=== PATIENT | male | born 1945 | race Caucasian/White ===

== ENCOUNTER → 2022-06-20 14:00 | Outpatient (BNVA) | payer MEDICARE, OTHER, SELFPAY | PROVIDERS: PCP Internal Medicine; Visit Provider Psychiatry & Neurology Psychiatry | DX: F34.1 Dysthymic disorder (principal); F98.8 Other specified behavioral and emotional disorders with onset usually occurring in childhood and adolescence; I10 Essential (primary) hypertension; I25.10 Atherosclerotic heart disease of native coronary artery without angina pectoris | CPT/HCPCS: 90833; 99212 ==

== ENCOUNTER 2023-06-06 11:59 | Outpatient (AMB) | payer MEDICARE, OTHER, SELFPAY ==
--- NOTE | 2023-06-06 12:52 | A.OFFPSYCH_ITS ---
Intake Intake Visit Reasons: depression Allergies No Known Allergies [No Known Allergies*] Allergy (Unverified 11/11/19 16:25) HPI- Psychiatric Chief Complaint: depression HPI Narrative: Pt seen in f/u mood has been blue at times feels like he does cycle down for periods of time and become amotivational at times lack of interest in things lack of shilpa periods of significant anxiety not wanting to do the things that he normally does Past Psychiatric History: History of ADD Chronic history of anxiety and dysthymia Mental Status Exam Mental Status Exam Patient Appearance: Well Grooomed Patient Orientation: Person, Place, Time and Situation Level of Consciousness: Awake and Appropriate Patient Behavior: Appropriate Mood Description: Depressed, Blunted and Apprehensive Affect Description: Appropriate and Constricted Patient Cognition Impaired: No Ability to Follow Directions: Good Speech Pattern: Clear Memory Description: Intact Hallucinations: None Delusions: Not Present Thought Process: Intact and Goal Oriented Thought Content: positive for Goal Oriented, positive for Preoccupation, negative for Suicidal Ideation or negative for Homicidal Ideation Depressive Symptoms: Increased Anxiety, Increased Irritability, Hopelessness, Increased Fatigue, Loss of Energy and Difficulty Concentrating Judgement: Good Assessment and Plan Assessment & Plan (1) Dysthymia: Status: Acute Code(s): F34.1 - Dysthymic disorder (2) ADD (attention deficit disorder) without hyperactivity: Status: Acute Code(s): F98.8 - Other specified behavioral and emotional disorders with onset usually occurring in childhood and adolescence Plan Discussed issues related to depression motivation energy encourage regular exercise social activity exposure to light restart sertraline combined with Wellbutrin may better help anxiety and depressive symptoms risks benefits alternatives reviewed occasional use of lorazepam patient has been sober for many years does not seem to be a trigger Medications: New sertraline start 1/2 tab 2 weeks if no better inc 1 tab daily 50 mg PO DAILY 30 tabs 0RF 30 days Refilled lorazepam 0.5 mg PO DAILY PRN 20 tabs 1RF anxiety bupropion HCl XL (Wellbutrin XL) 150 mg PO QAM 90 tabs 0RF 3 months Counseling and coordination of Care Details-Self Mgmt counseling: Issues related to management depressive symptoms Medication management counseling: Effectiveness, Side effects and Dosing range Diagnosis and Prognosis Counseling: Adequacy of current interventions Details: I spent [38] minutes reviewing the record, seeing the patient and documenting in the medical record. Counseling provided to the patient/caregiver as outlined below. Addressed patient/caregiver concerns regarding current medication regime including effective adherence. Addressed patient/caregiver concerns regarding diagnosis and prognosis including accuracy of diagnosis, prognosis over time, impact of diagnosis. Addressed patient/caregiver concerns regarding impact of recent stressors. 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
== END 2023-06-06 12:30 ==
LOC: HO.HOP 11:59
PROVIDERS: PCP Internal Medicine; Visit Provider Psychiatry & Neurology Psychiatry
DX: F34.1 Dysthymic disorder (principal); F98.8 Other specified behavioral and emotional disorders with onset usually occurring in childhood and adolescence
CPT/HCPCS: 90833; 99213

== ENCOUNTER → 2023-06-06 11:59 | Outpatient (BNVA) | payer MEDICARE, OTHER, SELFPAY | PROVIDERS: PCP Internal Medicine; Visit Provider Psychiatry & Neurology Psychiatry | DX: F34.1 Dysthymic disorder (principal); F98.8 Other specified behavioral and emotional disorders with onset usually occurring in childhood and adolescence | CPT/HCPCS: 99212 ==

== ENCOUNTER 2023-10-24 11:18 | Outpatient (AMB) | payer MEDICARE, OTHER, SELFPAY ==
--- NOTE | 2023-10-24 11:44 | A.OFFPSYCH_ITS ---
Intake Intake Visit Reasons: depression Allergies No Known Allergies [No Known Allergies*] Allergy (Unverified 11/11/19 16:25) HPI- Psychiatric Chief Complaint: depression HPI Narrative: Pt seen in f/u mood good daughter recently got daughter sober x yrs has intermittantly had a difficult time fighting the blues much less on sertraline has dec sexual fx rare limited sx panic attack does fight the blues intermittently difficulty at times with motivation ability to enjoy things Past Psychiatric History: History of ADD Chronic history of anxiety and dysthymia Mental Status Exam Mental Status Exam Patient Appearance: Well Grooomed Patient Orientation: Person, Place, Time and Situation Level of Consciousness: Awake and Appropriate Patient Behavior: Appropriate Mood Description: Depressed, Blunted and Apprehensive Affect Description: Appropriate and Constricted Patient Cognition Impaired: No Ability to Follow Directions: Good Speech Pattern: Clear Memory Description: Intact Hallucinations: None Delusions: Not Present Thought Process: Intact and Goal Oriented Thought Content: positive for Goal Oriented, positive for Preoccupation, negati ve for Suicidal Ideation or negative for Homicidal Ideation Depressive Symptoms: Increased Anxiety, Increased Irritability, Hopelessness, Increased Fatigue, Loss of Energy and Difficulty Concentrating Judgement: Good Assessment and Plan Assessment & Plan (1) Dysthymia: Status: Acute Code(s): F34.1 - Dysthymic disorder (2) ADD (attention deficit disorder) without hyperactivity: Status: Acute Code(s): F98.8 - Other specified behavioral and emotional disorders with onset usually occurring in childhood and adolescence Plan pt doing better with sertraline wellbutrin some sexual side effects some ongoing difficulty with melancholy L methyl folate for augmentation at full dose of 15 mg would make sense consider change from sertraline secondary to sexual side effects could increase Wellbutrin with monitoring blood pressure Counseling and coordination of Care Pt. 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 Counseling provided to the patient/caregiver as outlined below. Addressed patient/caregiver concerns regarding current medication regime including effective adherence. Addressed patient/caregiver concerns regarding diagnosis and prognosis including accuracy of diagnosis, prognosis over time, impact of diagnosis. Addressed patient/caregiver concerns regarding impact of recent stressors. 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
== END 2023-10-24 12:11 | disposition home or self-care (01) ==
LOC: HO.HOP 11:18
PROVIDERS: PCP Internal Medicine; Visit Provider Psychiatry & Neurology Psychiatry
DX: F34.1 Dysthymic disorder (principal); F98.8 Other specified behavioral and emotional disorders with onset usually occurring in childhood and adolescence
CPT/HCPCS: 90833; 99213

== ENCOUNTER → 2023-10-24 11:18 | Outpatient (BNVA) | payer MEDICARE, OTHER, SELFPAY | PROVIDERS: PCP Internal Medicine; Visit Provider Psychiatry & Neurology Psychiatry | DX: F34.1 Dysthymic disorder (principal); F98.8 Other specified behavioral and emotional disorders with onset usually occurring in childhood and adolescence | CPT/HCPCS: 99212 ==

== ENCOUNTER 2024-02-12 10:54 | Outpatient (AMB) | payer MEDICARE, OTHER, SELFPAY ==
--- NOTE | 2024-02-12 11:24 | MHC.OFFVISPS ---
Intake Intake Visit Reasons: depression Allergies No Known Allergies [No Known Allergies*] Allergy (Unverified 11/11/19 16:25) HPI- Psychiatric Chief Complaint: depression HPI Narrative: Pt seen in f/u mood improved does exercise daily does get intermittently discouraged at times. Sometimes melancholic but generally feeling okay. No new medical problems. 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 Gets along well with his has daughter's doing quite well and has been . Patient generally thinks he feels better on the combination of Wellbutrin and relatively low-dose sertraline no complaints of side effects less prone to periods of melancholy. PHQ-9 and jorge 7 not elevated Past Psychiatric History: History of ADD Chronic history of anxiety and dysthymia Mental Status Exam Mental Status Exam Patient Appearance: Well Grooomed Patient Orientation: Person, Place, Time and Situation Level of Consciousness: Awake and Appropriate Patient Behavior: Appropriate Mood Description: Appropriate Affect Description: Flat Patient Cognition Impaired: No Ability to Follow Directions: Good Speech Pattern: Clear Memory Description: Intact Hallucinations: None Delusions: Not Present Thought Process: Intact and Goal Oriented Thought Content: positive for Goal Oriented, positive for Preoccupation, negative for Suicidal Ideation or negative for Homicidal Ideation Depressive Symptoms: Increased Anxiety and Loss of Int. in Activity Judgement: Good Judgement and Insight: Generally good insight some tendency toward melancholy tries to change the channel Assessment and Plan Assessment & Plan (1) Dysthymia: Status: Acute Code(s): F34.1 - Dysthymic disorder (2) ADD (attention deficit disorder) without hyperactivity: Status: Acute Code(s): F98.8 - Other specified behavioral and emotional disorders with onset usually occurring in childhood and adolescence (3) Hypertension: Status: Acute Code(s): I10 - Essential (primary) hypertension Plan Occasional use of lorazepam p.r.n. patient has been sober 25+ years continue low-dose sertraline which appears to be quite helpful for helping with mixed anxiety and depressive symptoms continue Wellbutrin 150 mg. No new medical concerns follow-up 4 months Medications: Refilled lorazepam 0.5 mg PO DAILY PRN 20 tabs 1RF anxiety sertraline 50 mg PO DAILY 90 tabs 1RF 90 days bupropion HCl XL (Wellbutrin XL) 150 mg PO QAM 90 tabs 0RF 3 months Counseling and coordination of Care Pt. Self Management counseling: Breathing, Behavior activation and Cognitive restructuring Details-Self Mgmt counseling: Try and be aware of negative cognitions and distortions Diagnosis and Prognosis Counseling: Adequacy of current interventions Details: I spent [37] minutes reviewing the record, seeing the patient and documenting in the medical record. Counseling provided to the patient/caregiver as outlined below. Addressed patient/caregiver concerns regarding current medication regime including effective adherence. Addressed patient/caregiver concerns regarding diagnosis and prognosis including accuracy of diagnosis, prognosis over time, impact of diagnosis. Addressed patient/caregiver concerns regarding impact of recent stressors. 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
== END 2024-02-12 11:36 | disposition home or self-care (01) ==
LOC: HO.HOP 10:54
PROVIDERS: PCP Internal Medicine; Visit Provider Psychiatry & Neurology Psychiatry
DX: F34.1 Dysthymic disorder (principal); F98.8 Other specified behavioral and emotional disorders with onset usually occurring in childhood and adolescence; I10 Essential (primary) hypertension
CPT/HCPCS: 99214

== ENCOUNTER → 2024-02-12 10:54 | Outpatient (BNVA) | payer MEDICARE, OTHER, SELFPAY | PROVIDERS: PCP Internal Medicine; Visit Provider Psychiatry & Neurology Psychiatry | DX: F34.1 Dysthymic disorder (principal); F98.8 Other specified behavioral and emotional disorders with onset usually occurring in childhood and adolescence; I10 Essential (primary) hypertension | CPT/HCPCS: 99212 ==

== ENCOUNTER 2024-07-15 11:17 | Outpatient (AMB) | payer MEDICARE, OTHER, SELFPAY ==
--- NOTE | 2024-07-15 12:53 | MHC.OFFVISPS ---
Intake Intake Visit Reasons: depression Allergies No Known Allergies [No Known Allergies*] Allergy (Unverified 11/11/19 16:25) Medication List - Last Reconciled 07/15/24 by Valentín Eastman MD aspirin (Adult Aspirin Regimen) 81 mg PO DAILY atorvastatin 80 mg PO BEDTIME bupropion HCl XL (Wellbutrin XL) 150 mg PO QAM 3 months carvedilol 25 mg PO BID doxepin 3 mg PO BEDTIME PRN lorazepam 0.5 mg PO DAILY PRN sertraline 75 mg (1.5 x 50 mg) PO DAILY 90 days HPI- Psychiatric Chief Complaint: depression HPI Narrative: Patient seen psychiatric follow-up patient has generally been doing okay but has some aspects of mild chronic dysthymia has had difficulty with senior care at times. 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 No new medical concerns Past Psychiatric History: History of ADD Chronic history of anxiety and dysthymia Mental Status Exam Mental Status Exam Patient Appearance: Well Grooomed Patient Orientation: Person, Place, Time and Situation Level of Consciousness: Awake and Appropriate Patient Behavior: Appropriate Mood Description: Depressed and Blunted Affect Description: Flat Patient Cognition Impaired: No Ability to Follow Directions: Good Speech Pattern: Clear Memory Description: Intact Hallucinations: None Delusions: Not Present Thought Process: Intact and Goal Oriented Thought Content: positive for Goal Oriented, positive for Preoccupation, negative for Suicidal Ideation or negative for Homicidal Ideation Depressive Symptoms: Increased Anxiety and Loss of Int. in Activity Judgement: Good Judgement and Insight: Generally good insight some tendency toward melancholy tries to change the channel Assessment and Plan Assessment & Plan (1) Dysthymia: Status: Acute Code(s): F34.1 - Dysthymic disorder (2) ADD (attention deficit disorder) without hyperactivity: Status: Acute Code(s): F98.8 - Other specified behavioral and emotional disorders with onset usually occurring in childhood and adolescence Plan We discussed different strategies to manage chronic dysphoria this is fair familiar to the patient over time. We have discussed exercise L methyl folate increasing sertraline to 75 mg discussed possibility of increased sexual side effects Medications: Changed From sertraline 50 mg PO DAILY 90 days 90 tabs 1RF To sertraline 75 mg (1.5 x 50 mg) PO DAILY 135 tabs 1RF 90 days Refilled lorazepam 0.5 mg PO DAILY PRN 20 tabs 1RF anxiety Counseling and coordination of Care Details-Self Mgmt counseling: Issues related to chronic depression senior care ways to maintain functioning and mood Diagnosis and Prognosis Counseling: Impact of diagnosis on life functions and Adequacy of current interventions Details: I spent [40] minutes reviewing the record, seeing the patient and documenting in the medical record. Counseling provided to the patient/caregiver as outlined below. Addressed patient/caregiver concerns regarding current medication regime including effective adherence. Addressed patient/caregiver concerns regarding diagnosis and prognosis including accuracy of diagnosis, prognosis over time, impact of diagnosis. Addressed patient/caregiver concerns regarding impact of recent stressors. 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
== END 2024-07-15 13:46 | disposition home or self-care (01) ==
LOC: HO.HOP 11:17
PROVIDERS: PCP Internal Medicine; Visit Provider Psychiatry & Neurology Psychiatry
DX: F34.1 Dysthymic disorder (principal); F98.8 Other specified behavioral and emotional disorders with onset usually occurring in childhood and adolescence
CPT/HCPCS: 90833; 99213

== ENCOUNTER → 2024-07-15 11:17 | Outpatient (BNVA) | payer MEDICARE, OTHER, SELFPAY | PROVIDERS: PCP Internal Medicine; Visit Provider Psychiatry & Neurology Psychiatry | DX: F34.1 Dysthymic disorder (principal); F98.8 Other specified behavioral and emotional disorders with onset usually occurring in childhood and adolescence; Z71.89 Other specified counseling | CPT/HCPCS: 99212 ==

== ENCOUNTER 2024-10-11 10:53 | Outpatient (REF) | payer MEDICARE, OTHER, SELFPAY ==
[2024-10-11 13:08] LABS: Alanine Aminotransferase 58 U/L (0-40); Albumin Level 4.7 g/dL (3.5-5.0); Alkaline Phosphatase 97 U/L (39-117); Anion Gap 11 (12-20); Aspartate Amino Transferase 35 U/L (5-37); Blood Urea Nitrogen 19 mg/dL (9-16); Calcium 9.2 mg/dL (8.4-10.2); Carbon Dioxide 25 mmol/L (22-29); Chloride 109 mmol/L (96-108); Estimated Glomerular Filt Rate > 60; Potassium 4.2 mmol/L (3.3-5.1); Sodium 141 mmol/L (135-145); Total Protein 7.2 g/dL (6.5-8.0)
[2024-10-11 13:30] LABS: Folate 13.8 ng/mL (> or = 4.0); Vitamin B12 517 pg/mL (200-900)
== END 2024-10-11 10:54 | disposition home or self-care (01) ==
LOC: HO.LAB 10:53
PROVIDERS: PCP Internal Medicine; Visit Provider Psychiatry & Neurology Psychiatry
DX: F34.1 Dysthymic disorder (principal); F98.8 Other specified behavioral and emotional disorders with onset usually occurring in childhood and adolescence; I10 Essential (primary) hypertension
CPT/HCPCS: 36415; 80053; 82607; 82746; 84443; 99212

== ENCOUNTER 2024-10-11 10:53 | Outpatient (AMB) | payer MEDICARE, OTHER, SELFPAY ==
--- NOTE | 2024-10-11 11:44 | MHC.OFFVISPS ---
Intake Intake Visit Reasons: depression Allergies No Known Allergies (No Known Allergies*) Allergy (Unverified 11/11/19 16:25) HPI- Psychiatric Chief Complaint: depression HPI Narrative: Patient describes certain sense of chronic low-level dysphoria lack of interest in things that he normally used to do. 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 No new medical concerns. Patient does walk regularly. Past Psychiatric History: History of ADD Chronic history of anxiety and dysthymia Mental Status Exam Mental Status Exam Patient Appearance: Well Grooomed Patient Orientation: Person, Place, Time and Situation Level of Consciousness: Awake and Appropriate Patient Behavior: Appropriate Mood Description: Depressed and Blunted Affect Description: Flat Patient Cognition Impaired: No Ability to Follow Directions: Good Speech Pattern: Clear Memory Description: Intact Hallucinations: None Delusions: Not Present Thought Process: Intact and Goal Oriented Thought Content: positive for Goal Oriented, positive for Preoccupation, negative for Suicidal Ideation or negative for Homicidal Ideation Depressive Symptoms: Increased Anxiety and Loss of Int. in Activity Judgement: Good Judgement and Insight: Generally good insight some tendency toward melancholy tries to change the channel Assessment and Plan Assessment & Plan (1) Dysthymia: Status: Acute Code(s): F34.1 - Dysthymic disorder (2) ADD (attention deficit disorder) without hyperactivity: Status: Acute Code(s): F98.8 - Other specified behavioral and emotional disorders with onset usually occurring in childhood and adolescence Plan Check labs with chronic dysphoria have strongly urged patient to consider TMS which was helpful in the past would not have the medication side effects he is concerned about CONTINUE WELLBUTRIN SERTRALINE TSH B12 FOLATE ARE WITHIN NORMAL LIMITS Orders: Orders TSH reflex Free T4 10/11/24 F34.1 - Dysthymic disorder, F98.8 - Other specified behavioral and emotional disorders with onset usually occurring in childhood and adolescence, I10 - Essential (primary) hypertension Comprehensive Met. Panel 10/11/24 F34.1 - Dysthymic disorder, F98.8 - Other specified behavioral and emotional disorders with onset usually occurring in childhood and adolescence, I10 - Essential (primary) hypertension Vitamin B12 and Folate 10/11/24 F34.1 - Dysthymic disorder, F98.8 - Other specified behavioral and emotional disorders with onset usually occurring in childhood and adolescence, I10 - Essential (primary) hypertension Counseling and coordination of Care Details: I spent [] minutes reviewing the record, seeing the patient and documenting in the medical record. Counseling provided to the patient/caregiver as outlined below. Addressed patient/caregiver concerns regarding current medication regime including effective adherence. Addressed patient/caregiver concerns regarding diagnosis and prognosis including accuracy of diagnosis, prognosis over time, impact of diagnosis. Addressed patient/caregiver concerns regarding impact of recent stressors. 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
== END 2024-10-11 11:53 | disposition home or self-care (01) ==
LOC: HO.HOP 10:53
PROVIDERS: PCP Internal Medicine; Visit Provider Psychiatry & Neurology Psychiatry
DX: F34.1 Dysthymic disorder (principal); F98.8 Other specified behavioral and emotional disorders with onset usually occurring in childhood and adolescence
CPT/HCPCS: 90833; 99213

== ENCOUNTER 2024-12-02 10:10 | Outpatient (AMB) | payer MEDICARE, OTHER, SELFPAY ==
--- NOTE | 2024-12-02 11:13 | MHC.OFFVISPS ---
Intake Intake Visit Reasons: depression Allergies No Known Allergies (No Known Allergies*) Allergy (Unverified 11/11/19 16:25) HPI- Psychiatric Chief Complaint: depression HPI Narrative: Patient continues to feel somewhat out of sorts. Concerned about his lack of shilpa and the changes in his life. 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 He does have intermittent anxiety/panic and occasionally uses lorazepam does this occasionally remains sober. Tends to have anxiety in the morning, combination of physical and mental anxiety. Difficulty functioning and getting started. Feels overwhelmed at times with basic tasks. Did not tolerate L methyl folate had increased anxiety on sertraline 50 mg Wellbutrin 150 mg. [place]vett perhaps more no sexual feeling on sertraline at higher doses. Has also attend to gain weight on sertraline Past Psychiatric History: History of ADD Chronic history of anxiety and dysthymia Mental Status Exam Mental Status Exam Patient Appearance: Well Grooomed Patient Orientation: Person, Place, Time and Situation Level of Consciousness: Awake and Appropriate Patient Behavior: Appropriate Mood Description: Depressed and Blunted Affect Description: Flat and Apprehensive Patient Cognition Impaired: No Ability to Follow Directions: Good Speech Pattern: Clear Memory Description: Intact Hallucinations: None Delusions: Not Present Thought Process: Intact and Goal Oriented Thought Content: positive for Goal Oriented, positive for Preoccupation, negative for Suicidal Ideation or negative for Homicidal Ideation Depressive Symptoms: Increased Anxiety, Diff. Making Decisions, Increased Irritability, Loss of Int. in Activity, Feelings of Worthlessness and Increased Fatigue Judgement: Good Judgement and Insight: Generally good insight some tendency toward melancholy tries to change the channel Assessment and Plan Assessment & Plan (1) Dysthymia: Status: Acute Code(s): F34.1 - Dysthymic disorder (2) ADD (attention deficit disorder) without hyperactivity: Status: Acute Code(s): F98.8 - Other specified behavioral and emotional disorders with onset usually occurring in childhood and adolescence Plan Patient will try and taper off of sertraline and then start vilazodone. Continue Wellbutrin. May help with anxiety and depressive symptoms. Patient has some difficulty with motivation attention energy feeling empty at times difficulty finding shilpa in energy. 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 Medications: New vilazodone must administer with a meal/food 10 mg PO DAILY 30 tabs 2RF 30 days Discontinued sertraline Discontinued Reason: Patient Completed Course 75 mg (1.5 x 50 mg) PO DAILY 90 days 135 tabs 1RF Counseling and coordination of Care Details-Self Mgmt counseling: Issues related to managing motivation energy finding shilpa managing depressive symptoms and thought Medication management counseling: Effectiveness, Side effects and Dosing range Diagnosis and Prognosis Counseling: Impact of diagnosis on life functions and Adequacy of current interventions Details: I spent [38] minutes reviewing the record, seeing the patient and documenting in the medical record. Counseling provided to the patient/caregiver as outlined below. Addressed patient/caregiver concerns regarding current medication regime including effective adherence. Addressed patient/caregiver concerns regarding diagnosis and prognosis including accuracy of diagnosis, prognosis over time, impact of diagnosis. Addressed patient/caregiver concerns regarding impact of recent stressors. 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
== END 2024-12-02 11:02 | disposition home or self-care (01) ==
LOC: HO.HOP 10:10
PROVIDERS: PCP Internal Medicine; Visit Provider Psychiatry & Neurology Psychiatry
DX: F34.1 Dysthymic disorder (principal); F98.8 Other specified behavioral and emotional disorders with onset usually occurring in childhood and adolescence
CPT/HCPCS: 90833; 99213

== ENCOUNTER → 2024-12-02 10:10 | Outpatient (BNVA) | payer MEDICARE, OTHER, SELFPAY | PROVIDERS: PCP Internal Medicine; Visit Provider Psychiatry & Neurology Psychiatry | DX: F34.1 Dysthymic disorder (principal); F98.8 Other specified behavioral and emotional disorders with onset usually occurring in childhood and adolescence | CPT/HCPCS: 99212 ==

== ENCOUNTER 2025-02-10 10:18 | Outpatient (AMB) | payer MEDICARE, OTHER, SELFPAY ==
--- NOTE | 2025-02-10 11:00 | MHC.OFFVISPS ---
Intake Intake Visit Reasons: Depression Allergies No Known Allergies (No Known Allergies*) Allergy (Unverified 11/11/19 16:25) HPI- Psychiatric Chief Complaint: Depression Intake Note: Patient agrees to use of scribe HPI Narrative: PATIENT SUMMARY The patient presented for follow-up regarding medication management and to address ongoing symptoms of anxiety and depression. HPI The patient reported discontinuing sertraline (Zoloft) and transitioning to a new medication, which initially resulted in withdrawal symptoms such as vertigo and increased anxiety. The patient experienced these symptoms for approximately two weeks until the new medication began to take effect, leading to an improvement in mood. The patient noted feeling mellow and less depressed, though occasional anxiety and depressive symptoms persist, particularly in the morning. The patient described these episodes as feeling jittery and on the verge of a panic attack but acknowledged that they eventually pass. The patient also mentioned occasional use of lorazepam to manage anxiety and requested a refill. The patient reported no side effects from Wellbutrin and stated that the sexual side effects experienced with previous medications have improved. PAIN The patient did not report any pain during the encounter. BACKGROUND The patient reported no new allergies or physical symptoms. The patient confirmed taking Wellbutrin and has not experienced anxiety or jitteriness as a side effect. 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 Sertraline discontinued start vilazodone for anxiety symptoms rumination less prone to sexual side effects. Risks benefits reviewed with patient ASSESSMENT The differential diagnosis includes serotonin withdrawal syndrome from discontinuing sertraline, generalized anxiety disorder with occasional panic symptoms, and major depressive disorder with morning worsening of symptoms. The patient's response to the current medication regimen suggests partial improvement in depressive symptoms but persistent anxiety and morning mood disturbances. PLAN 1. Continue current medications, including Wellbutrin and vilazodone. 2. Prescribed a three-month supply of all medications, including lorazepam for anxiety management. 3. Advised the patient to use a lightbox in the mornings for mood improvement. 4. Discussed adjusting the timing of vilazodone administration to address morning symptoms. 5. Recommended the patient use doxepin as needed for sleep, with the option to increase from one to two tablets if necessary. 6. Scheduled a follow-up appointment in two and a half months, with instructions to contact the office via portal message or phone if any side effects or concerns arise before then. Medications: Changed From doxepin 3 mg PO BEDTIME PRN sleep To doxepin 3 mg PO BEDTIME PRN 90 tabs 1RF sleep 90 days Refilled lorazepam 0.5 mg PO DAILY PRN 20 tabs 1RF anxiety vilazodone must administer with a meal/food 10 mg PO DAILY 30 tabs 2RF 30 days Counseling and coordination of Care Details: I spent [] minutes reviewing the record, seeing the patient and documenting in the medical record. Counseling provided to the patient/caregiver as outlined below. Addressed patient/caregiver concerns regarding current medication regime including effective adherence. Addressed patient/caregiver concerns regarding diagnosis and prognosis including accuracy of diagnosis, prognosis over time, impact of diagnosis. Addressed patient/caregiver concerns regarding impact of recent stressors. 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
== END 2025-02-10 11:05 | disposition home or self-care (01) ==
LOC: HO.HOP 10:18
PROVIDERS: PCP Internal Medicine; Visit Provider Psychiatry & Neurology Psychiatry
DX: F34.1 Dysthymic disorder (principal); F98.8 Other specified behavioral and emotional disorders with onset usually occurring in childhood and adolescence
CPT/HCPCS: 90833; 99213

== ENCOUNTER → 2025-02-10 10:18 | Outpatient (BNVA) | payer MEDICARE, OTHER, SELFPAY | PROVIDERS: PCP Internal Medicine; Visit Provider Psychiatry & Neurology Psychiatry | DX: F34.1 Dysthymic disorder (principal); F98.8 Other specified behavioral and emotional disorders with onset usually occurring in childhood and adolescence | CPT/HCPCS: 99212 ==